=== PATIENT | female | born 2000 | race Asian ===

== ENCOUNTER 2021-10-25 13:32 | Emergency (ER) | payer OTHER ==
[2021-10-25 13:37] VITALS: BP 133/84; PULSE 67; TEMP 98.6; BMI 25.3
[2021-10-25 14:27] LABS: BASO % 0.2 % (0-2.0); EOS % 2.4 % (0-4.5); HEMATOCRIT 35.8 % (32.4-45.2); LYMPH % 19.1 % (8-40); MCHC 33.6 g/dl (32.0-36.0); MEAN CELL VOLUME 86.2 fl (80-96); MEAN PLT VOLUME 8.6 fl (7.5-11.1); MONO % 7.2 % (3.8-10.2); NEUT % 71.1 % (42.8-82.8); PLATELET COUNT 276 10^3/uL (134-434); RBC 4.15 M/mm3 (3.60-5.2); RDW 13.1 % (11.6-15.6); WHITE BLOOD COUNT 7.8 K/mm3 (4.0-10.0)
[2021-10-25 14:32] LABS: INR 1.06 (0.83-1.09); PROTHROMBIN TIME (PATIENT) 12.2 SEC (9.7-13.0)
[2021-10-25 14:35] LABS: ACTIVATED PTT 23.5 SECONDS (25.2-36.5)
[2021-10-25 14:53] LABS: CALCIUM 9.2 mg/dL (8.5-10.1)
[2021-10-25 14:54] LABS: ALBUMIN 3.7 g/dl (3.4-5.0); BLOOD UREA NITROGEN 9.5 mg/dL (7-18)
[2021-10-25 14:57] LABS: CREATININE 0.5 mg/dL (0.55-1.3)
[2021-10-25 14:58] LABS: TOT PROT 7.7 g/dl (6.4-8.2)
[2021-10-25 14:59] LABS: BILIRUBIN,TOTAL 0.4 mg/dL (0.2-1)
== END 2021-10-25 15:16 | disposition home or self-care (01) ==
LOC: JER 13:32
DX: L98.8 Other specified disorders of the skin and subcutaneous tissue (principal)
CPT/HCPCS: 36415; 80053; 84439; 84443; 85025; 85610; 85730; 99283-25

== ENCOUNTER 2022-07-25 23:55 | Emergency (ER) | payer OTHER ==
[2022-07-26] VITALS: RESP 18; BMI 28.2
[2022-07-26] MEDS ORDERED: ALBUTEROL SO4 2.5/IPRATROPIUM 0.5 INH SOL 3 ML VIAL.NEB. NEB ONE (01:17)
[2022-07-26] MEDS: ALBUTEROL SO4 2.5/IPRATROPIUM 0.5 INH SOL 3 ML VIAL.NEB. NEB SCH ×4 (01:19→02:03)
[2022-07-26 01:37] LABS: BASO % 0.2 % (0-2.0); EOS % 1.7 % (0-4.5); HEMATOCRIT 31.7 % (32.4-45.2); HEMOGLOBIN 10.6 GM/dL (10.7-15.3); LYMPH % 8.5 % (8-40); MCH 29.7 pg (25.7-33.7); MCHC 33.5 g/dl (32.0-36.0); MEAN CELL VOLUME 88.5 fl (80-96); MEAN PLT VOLUME 9.2 fl (7.5-11.1); MONO % 7.9 % (3.8-10.2); NEUT % 81.7 % (42.8-82.8); PLATELET COUNT 228 10^3/uL (134-434); RBC 3.58 M/mm3 (3.60-5.2); WHITE BLOOD COUNT 17.7 K/mm3 (4.0-10.0)
[2022-07-26 01:38] LABS: INR 0.98 (0.83-1.09); PROTHROMBIN TIME (PATIENT) 11.4 SEC (9.7-13.0)
[2022-07-26 01:41] LABS: ACTIVATED PTT 27.2 SECONDS (25.2-36.5)
[2022-07-26 01:47] LABS: CHLORIDE 103 mmol/L (98-107); SODIUM 135 mmol/L (136-145)
[2022-07-26 01:49] LABS: ALBUMIN 3.1 g/dl (3.4-5.0); ANION GAP 8 MMOL/L (8-16); CALCIUM 9.6 mg/dL (8.5-10.1); CO2 24 mmol/L (21-32)
[2022-07-26 01:50] LABS: GLUCOSE,RANDOM 107 mg/dL (74-106)
[2022-07-26 01:52] LABS: CREATININE 0.5 mg/dL (0.55-1.3); SGPT/ALT 14 U/L (13-61)
[2022-07-26 01:53] LABS: SGOT/AST 15 U/L (15-37)
[2022-07-26 01:54] LABS: BILIRUBIN,TOTAL < 0.1 mg/dL (0.2-1); TOT PROT 7.7 g/dl (6.4-8.2)
[2022-07-26 01:57] LABS: ALK PHOS 64 U/L (45-117)
[2022-07-26] MEDS ORDERED: AMOXICILLIN 500 MG CAPSULE (FP) PO ONE (04:39)
[2022-07-26] MEDS ORDERED: AMOXICILLIN 500 MG CAPSULE (FP) ONE (04:48)
[2022-07-26 05:31] VITALS: BP 120/66; PULSE 75; TEMP 98.5
[2022-07-26] MEDS ORDERED: AZITHROMYCIN 500 MG TABLET PO SCH (10:00)
== END 2022-07-26 06:17 | disposition home or self-care (01) ==
LOC: JER 23:55
PROC: 3E0F7GC Introduction of Other Therapeutic Substance into Respiratory Tract, Via Natural or Artificial Opening (ICD-10-PCS; principal; 2022-07-25)
DX: O99.513 Diseases of the respiratory system complicating pregnancy, third trimester (principal); J18.9 Pneumonia, unspecified organism; R06.02 Shortness of breath; Z3A.29 29 weeks gestation of pregnancy
CPT/HCPCS: 36415; 71275-TC; 80053; 84484; 85025; 85379; 85610; 85730; 93005; 93010; 99285-25

== ENCOUNTER 2022-10-15 11:38 | Inpatient (IN) | payer OTHER ==
[2022-10-15] MEDS: ELECTROLYTE-148 SOLN 1,000 ML IV SCH (12:00)
[2022-10-15 12:24] LABS: BASO % 0.2 % (0-2.0); HEMATOCRIT 29.8 % (32.4-45.2); HEMOGLOBIN 10.1 GM/dL (10.7-15.3); LYMPH % 16.3 % (8-40); MCH 28.6 pg (25.7-33.7); MCHC 33.9 g/dl (32.0-36.0); MEAN CELL VOLUME 84.2 fl (80-96); MEAN PLT VOLUME 8.8 fl (7.5-11.1); MONO % 9.8 % (3.8-10.2); NEUT % 72.7 % (42.8-82.8); PLATELET COUNT 201 10^3/uL (134-434); RBC 3.53 M/mm3 (3.60-5.2); RDW 14.2 % (11.6-15.6); WHITE BLOOD COUNT 9.7 K/mm3 (4.0-10.0)
[2022-10-15 12:29] LABS: PROTHROMBIN TIME (PATIENT) 11.6 SEC (9.7-13.0)
[2022-10-15 12:32] LABS: ACTIVATED PTT 25.7 SECONDS (25.2-36.5)
[2022-10-15 12:43] LABS: POTASSIUM 3.9 mmol/L (3.5-5.1)
[2022-10-15 12:51] LABS: CALCIUM 8.6 mg/dL (8.5-10.1)
[2022-10-15 12:52] LABS: BLOOD UREA NITROGEN 8.9 mg/dL (7-18)
[2022-10-15 12:55] LABS: CREATININE 0.5 mg/dL (0.55-1.3)
[2022-10-15 13:05] VITALS: BMI 28.2
[2022-10-15] MEDS ORDERED: PROMETHAZINE HCL 25 MG/1 ML VIAL IM ONE (13:23)
[2022-10-15] MEDS ORDERED: OXYTOCIN 30 UNITS in 0.9% NS 30 UNIT/500 ML INFUS.BAG IVPB SCH (13:30)
[2022-10-15] MEDS ORDERED: BUTORPHANOL TARTRATE 2 MG/ML VIAL IVPB ONE (14:00)
[2022-10-15] MEDS ORDERED: OXYTOCIN 30 UNITS in 0.9% NS 30 UNIT/500 ML INFUS.BAG IVPB ONE (15:27)
[2022-10-15] MEDS: OXYTOCIN 30 UNITS in 0.9% NS 30 UNIT/500 ML INFUS.BAG IVPB SCH (15:35)
[2022-10-15] MEDS ORDERED: FENTANYL/BUPIVACAINE/NS/PF - PCEA - 50 ML DISP.SYRIN EP ONE (21:49)
[2022-10-15] MEDS: FENTANYL/BUPIVACAINE/NS/PF - PCEA - 50 ML DISP.SYRIN EP SCH (22:10)
[2022-10-15] MEDS ORDERED: NALOXONE HCL 0.4 MG/ML VIAL IVPUSH PRN (22:41)
[2022-10-16] MEDS ORDERED: FENTANYL/BUPIVACAINE/NS/PF - PCEA - 50 ML DISP.SYRIN EP ONE ×2 (01:53→05:47)
[2022-10-16] MEDS ORDERED: BENZOCAINE 20% 57 GM BOTTLE TP PRN (07:29)
[2022-10-16] MEDS ORDERED: ACETAMINOPHEN 325 MG TABLET (FP) PO PRN (07:29)
[2022-10-16] MEDS ORDERED: METHYLERGONOVINE MALEATE 0.2 MG/1 ML AMP IM PRN (07:29)
[2022-10-16] MEDS ORDERED: oxyCODONE HCL 5 MG TABLET PO PRN (07:29)
[2022-10-16] MEDS ORDERED: BISACODYL 10 MG SUPP.RECT RC PRN (07:29)
[2022-10-16] MEDS ORDERED: WITCH HAZEL 50% (TUCKS) 40 PAD/JAR PAD TP PRN (07:29)
[2022-10-16] MEDS ORDERED: BENZOCAINE 28 GM HEMORRHOIDAL OINTMENT TP PRN (07:29)
[2022-10-16] MEDS ORDERED: OXYTOCIN 20 UNITS in 0.9% NS 20 UNIT/1,000 ML INFUS.BAG IV SCH (07:30)
[2022-10-16 08:05] LABS: CORD BASE EXCESS -2.8 mmol/L (0-2); CORD HCO3 23.5 mmHg (20-29); CORD PCO2 46.5 mmHg (30-78); CORD pH 7.322 (7.14-7.44)
[2022-10-16 08:07] LABS: CORD BASE EXCESS -2.8 mmol/L (0-2); CORD HCO3 25.9 mmHg (20-29); CORD PCO2 61.1 mmHg (30-78); CORD pH 7.245 (7.14-7.44)
[2022-10-16] MEDS: PRENATAL VITAMINS W/ FOLIC ACID TABLET (FP) PO SCH (09:10)
[2022-10-16] MEDS: IBUPROFEN 600 MG TABLET (FP) PO PRN ×2 (09:10→21:55)
[2022-10-16] MEDS: FERROUS SO4 325 MG TABLET (FP) PO SCH ×3 (09:10→17:36)
[2022-10-17 07:09] LABS: BASO % 0.1 % (0-2.0); EOS % 1.8 % (0-4.5); HEMATOCRIT 28.3 % (32.4-45.2); HEMOGLOBIN 9.8 GM/dL (10.7-15.3); LYMPH % 15.8 % (8-40); MCH 29.1 pg (25.7-33.7); MCHC 34.5 g/dl (32.0-36.0); MEAN CELL VOLUME 84.4 fl (80-96); MEAN PLT VOLUME 9.3 fl (7.5-11.1); MONO % 11.3 % (3.8-10.2); PLATELET COUNT 186 10^3/uL (134-434); RBC 3.35 M/mm3 (3.60-5.2); RDW 14.4 % (11.6-15.6); WHITE BLOOD COUNT 10.6 K/mm3 (4.0-10.0)
[2022-10-17] MEDS: OXYTOCIN 30 UNITS in 0.9% NS 30 UNIT/500 ML INFUS.BAG IVPB SCH ×2 (07:37→16:15)
[2022-10-17] MEDS: FENTANYL/BUPIVACAINE/NS/PF - PCEA - 50 ML DISP.SYRIN EP SCH (07:38)
[2022-10-17] MEDS: ELECTROLYTE-148 SOLN 1,000 ML IV SCH ×2 (07:39→16:15)
[2022-10-17] MEDS: IBUPROFEN 600 MG TABLET (FP) PO PRN ×3 (08:14→21:18)
[2022-10-17] MEDS: PRENATAL VITAMINS W/ FOLIC ACID TABLET (FP) PO SCH (09:37)
[2022-10-17] MEDS: FERROUS SO4 325 MG TABLET (FP) PO SCH ×3 (09:37→16:52)
[2022-10-17] MEDS ORDERED: SENNOSIDES/DOCUSATE COMBO (SENNA PLUS) TABLET (UD) PO PRN (22:00)
[2022-10-18] MEDS: FERROUS SO4 325 MG TABLET (FP) PO SCH (10:52)
[2022-10-18] MEDS: PRENATAL VITAMINS W/ FOLIC ACID TABLET (FP) PO SCH (10:52)
[2022-10-18] MEDS: IBUPROFEN 600 MG TABLET (FP) PO PRN (10:52)
[2022-10-18 12:05] VITALS: BP 129/79; PULSE 91; RESP 16; TEMP 98.2
== END 2022-10-18 12:00 | disposition home or self-care (01) | DRG 560 ==
LOC: JLDR 11:38 → J3W 10-16 08:40
PROVIDERS: ADMIT Obstetrics & Gynecology; ATTEND Obstetrics & Gynecology
PROC: 10E0XZZ Delivery of Products of Conception, External Approach (ICD-10-PCS; principal; 2022-10-16)
DX: O48.0 Post-term pregnancy (principal); Z3A.41 41 weeks gestation of pregnancy; Z37.0 Single live birth
CPT/HCPCS: 36415; 36600; 80048; 82803; 85025; 85610; 85730; 86780; 86850; 86900; 86901; C9803-CS; U0003; U0005

== ENCOUNTER 2024-01-19 09:16 | Inpatient (IN) | payer OTHER ==
[2024-01-19] MEDS: ELECTROLYTE-148 SOLN 1,000 ML IV SCH (10:00)
[2024-01-19] MEDS ORDERED: AMPICILLIN SODIUM 2 GM VIAL ONE (10:05)
[2024-01-19] MEDS: AMPICILLIN - 2 GM in SODIUM CHLORIDE 100 ML IVPB ONE (10:10)
[2024-01-19 10:27] LABS: BASO % 0.2 % (0-2.0); EOS % 0.9 % (0-4.5); HEMATOCRIT 29.6 % (32.4-45.2); HEMOGLOBIN 10.1 GM/dL (10.7-15.3); LYMPH % 17.8 % (8-40); MCH 28.8 pg (25.7-33.7); MCHC 34.2 g/dl (32.0-36.0); MEAN CELL VOLUME 84.2 fl (80-96); MEAN PLT VOLUME 9.1 fl (7.5-11.1); MONO % 9.4 % (3.8-10.2); NEUT % 71.7 % (42.8-82.8); PLATELET COUNT 211 10^3/uL (134-434); RBC 3.52 M/mm3 (3.60-5.2); RDW 14.8 % (11.6-15.6); WHITE BLOOD COUNT 8.6 K/mm3 (4.0-10.0)
[2024-01-19 10:28] LABS: INR 0.93 (0.83-1.09); PROTHROMBIN TIME (PATIENT) 10.5 SEC (9.7-13.0)
[2024-01-19 10:31] LABS: ACTIVATED PTT 25.6 SECONDS (25.2-36.5)
[2024-01-19 11:18] LABS: BLOOD UREA NITROGEN 9.3 mg/dL (7-18)
[2024-01-19 11:22] LABS: CREATININE 0.5 mg/dL (0.55-1.3)
[2024-01-19 11:27] VITALS: BMI 33.4
[2024-01-19] MEDS ORDERED: OXYTOCIN 30 UNITS in 0.9% NS 30 UNIT/500 ML INFUS.BAG IVPB ONE (12:16)
[2024-01-19] MEDS: OXYTOCIN 30 UNITS in 0.9% NS 30 UNIT/500 ML INFUS.BAG IVPB SCH (12:20)
[2024-01-19 13:26] LABS: HIV INTERPRETATION NEGATIVE (NEGATIVE)
[2024-01-19] MEDS: AMPICILLIN - 1 GM in SODIUM CHLORIDE 100 ML IVPB SCH (14:10)
[2024-01-19] MEDS ORDERED: AMPICILLIN SODIUM 1 GM VIAL ONE ×2 (14:13→17:57)
[2024-01-19] MEDS ORDERED: FENTANYL/BUPIVACAINE/NS/PF - PCEA - 50 ML DISP.SYRIN EP ONE (16:32)
[2024-01-19] MEDS ORDERED: BUPIVACAINE HCL/PF 0.25% (2.5MG/ML) 10 ML VIAL ONE ×2 (16:36→19:28)
[2024-01-19] MEDS: FENTANYL/BUPIVACAINE/NS/PF - PCEA - 50 ML DISP.SYRIN EP SCH (16:50)
[2024-01-19] MEDS ORDERED: NALOXONE HCL 0.4 MG/ML VIAL IVPUSH PRN (16:56)
[2024-01-19] MEDS ORDERED: OXYTOCIN 20 UNITS in 0.9% NS 20 UNIT/1,000 ML INFUS.BAG IV ONE (19:27)
[2024-01-19] MEDS ORDERED: LIDOCAINE HCL 1% PRESERVATIVE FREE - 30ML VIAL ONE (19:27)
[2024-01-19] MEDS: OXYTOCIN 20 UNITS in 0.9% NS 20 UNIT/1,000 ML INFUS.BAG IV SCH (19:50)
[2024-01-19] MEDS ORDERED: BENZOCAINE 28 GM HEMORRHOIDAL OINTMENT TP PRN (19:59)
[2024-01-19] MEDS ORDERED: METHYLERGONOVINE MALEATE 0.2 MG/1 ML AMP IM PRN (19:59)
[2024-01-19] MEDS ORDERED: oxyCODONE HCL 5 MG TABLET PO PRN (19:59)
[2024-01-19] MEDS ORDERED: WITCH HAZEL 50% (TUCKS) 40 PAD/JAR PAD TP PRN (19:59)
[2024-01-19] MEDS ORDERED: BISACODYL 10 MG SUPP.RECT RC PRN (19:59)
[2024-01-19] MEDS ORDERED: IBUPROFEN 600 MG TABLET (FP) PO ONE (21:23)
[2024-01-19] MEDS: IBUPROFEN 600 MG TABLET (FP) PO PRN (21:25)
[2024-01-20] MEDS: BENZOCAINE 20% 57 GM BOTTLE TP PRN (00:21)
[2024-01-20] MEDS: ACETAMINOPHEN 325 MG TABLET (FP) PO PRN (00:23)
[2024-01-20 06:20] LABS: BASO % 0.1 % (0-2.0); EOS % 0.9 % (0-4.5); HEMATOCRIT 26.7 % (32.4-45.2); HEMOGLOBIN 8.9 GM/dL (10.7-15.3); LYMPH % 17.5 % (8-40); MCH 28.5 pg (25.7-33.7); MCHC 33.3 g/dl (32.0-36.0); MEAN CELL VOLUME 85.7 fl (80-96); MEAN PLT VOLUME 9.5 fl (7.5-11.1); MONO % 9.9 % (3.8-10.2); NEUT % 71.6 % (42.8-82.8); PLATELET COUNT 185 10^3/uL (134-434); RBC 3.11 M/mm3 (3.60-5.2); RDW 14.8 % (11.6-15.6); WHITE BLOOD COUNT 11.3 K/mm3 (4.0-10.0)
[2024-01-20] MEDS: DIPHTH,PERTUSS(ACELL),TET 0.5 ML DISP.SYRIN IM ONE (09:20)
[2024-01-20] MEDS ORDERED: SENNOSIDES/DOCUSATE COMBO (SENNA PLUS) TABLET (UD) PO PRN (22:00)
[2024-01-21 12:28] VITALS: BP 133/77; PULSE 81; RESP 16; TEMP 98.9
== END 2024-01-21 12:25 | disposition home or self-care (01) | DRG 560 ==
LOC: JLDR 09:16 → J3W 22:36
PROVIDERS: ADMIT Specialist; ATTEND Specialist
PROC: 10E0XZZ Delivery of Products of Conception, External Approach (ICD-10-PCS; principal; 2024-01-19)
DX: O42.913 Preterm premature rupture of membranes, unspecified as to length of time between rupture and onset of labor, third trimester (principal); O69.1XX0 Labor and delivery complicated by cord around neck, with compression, not applicable or unspecified; Z3A.37 37 weeks gestation of pregnancy; Z37.0 Single live birth
CPT/HCPCS: 36415; 59409; 80048; 85025; 85610; 85730; 86780; 86803; 86850; 86900; 86901; 87389; 90715